=== PATIENT | female | born 1945 | race Caucasian/White ===

== ENCOUNTER 2023-09-16 18:38 | Emergency (ER) | payer MEDICARE, SELFPAY ==
[2023-09-16 18:44] VITALS: BP 156/81; PULSE 96; RESP 18; TEMP 36.5; O2SAT 96; BMI 33.7
--- NOTE | 2023-09-16 18:50 | ED.NURSE ---
Spoke with Dr. Prado about patient's fall/injuries. Agreed she should have expedited head CT r/t Coumadin use. Shoulder xray also ordered. Radiology aware and coming to get patient.
--- NOTE | 2023-09-16 18:52 | CRLHL7_ITS ---
For Patients: As a result of the Cures Act, medical imaging exams and procedure reports are released immediately into your electronic medical record. You may view this report before your referring provider. If you have questions, please contact your health care provider. INDICATION: Fall, shoulder pain. TECHNIQUE: Left shoulder 3 views. COMPARISON: None. FINDINGS: There is an acute comminuted displaced fracture of the humeral head and neck. No dislocation. Minimal degenerative changes of the acromioclavicular joint. The visualized left lung is clear. Soft tissues are unremarkable. IMPRESSION: Acute comminuted displaced fracture of the humeral head and neck. Dictated by Beatrice Nguyen MD @ 09/16/2023 8:19:22 PM (Electronically Signed)
--- NOTE | 2023-09-16 18:52 | CRLHL7_ITS ---
For Patients: As a result of the Cures Act, medical imaging exams and procedure reports are released immediately into your electronic medical record. You may view this report before your referring provider. If you have questions, please contact your health care provider. INDICATION: Trauma. TECHNIQUE: Noncontrast axial images. Sagittal and coronal reconstructions. COMPARISON: None. FINDINGS: There is no abnormal intracranial mass effect or midline shift. No acute intracranial hemorrhage. No areas of abnormal attenuation are seen within the brain. CSF spaces are age-appropriate. No skull fracture. The paranasal sinuses and mastoids are clear. IMPRESSION: No CT evidence of an acute intracranial abnormality. Dictated by Marco Fairchild MD @ 09/16/2023 8:29:22 PM Please note that all CT scans at this facility use dose modulation, iterative reconstruction, and/or weight-based dosing when appropriate to reduce radiation dose to as low as reasonably achievable. Dictated by: Marco Fairchild MD @ 09/16/2023 20:29:34 (Electronically Signed)
--- NOTE | 2023-09-16 18:59 | CRLHL7_ITS ---
For Patients: As a result of the Century Cures Act, medical imaging exams and procedure reports are released immediately into your electronic medical record. You may view this report before your referring provider. If you have questions, please contact your health care provider. INDICATION: Trauma. TECHNIQUE: Noncontrast axial images. Sagittal and coronal reconstructions. COMPARISON: Head CT from earlier today. IMPRESSION: 1. No acute facial bone fracture. 2. Temporomandibular joints are normally aligned. 3. Intraorbital contents are grossly unremarkable. 4. Paranasal sinuses are clear. Dictated by Marco Fairchild MD @ 09/16/2023 8:33:31 PM Please note that all CT scans at this facility use dose modulation, iterative reconstruction, and/or weight-based dosing when appropriate to reduce radiation dose to as low as reasonably achievable. Dictated by: Marco Fairchild MD @ 09/16/2023 20:33:39 (Electronically Signed)
--- NOTE | 2023-09-16 18:59 | CRLHL7_ITS ---
For Patients: As a result of the Century Cures Act, medical imaging exams and procedure reports are released immediately into your electronic medical record. You may view this report before your referring provider. If you have questions, please contact your health care provider. INDICATION: Trauma. TECHNIQUE: Noncontrast axial images. Sagittal and coronal reconstructions. COMPARISON: None. FINDINGS: There is no abnormal prevertebral soft tissue swelling. Slight reversal of the normal lordotic cervical spine curvature centered at C4. No vertebral body malalignment or facet joint subluxation or dislocation. No cervical spine fracture. Multilevel disc degeneration, most significant (moderate to severe) at C5-6 and C6-7. Mild multilevel facet arthrosis. No significant central spinal stenosis. Mild bilateral neural foraminal narrowing at C5-6. IMPRESSION: 1. No cervical spine fracture or malalignment. 2. Cervical spondylosis as noted above. Please note that all CT scans at this facility use dose modulation, iterative reconstruction, and/or weight-based dosing when appropriate to reduce radiation dose to as low as reasonably achievable. Dictated by Marco Fairchild MD @ 09/16/2023 9:11:07 PM (Electronically Signed)
--- OUTSIDE RECORDS SUMMARY | 2023-09-16 19:48 | XMS_ITS | Continuity of Care Document ---
Author Name Unknown Organization [facility] Address [address] [address] [place] [address] Phone Care Team Providers Care Scarrer Name Role Phone Shaquille Sotelo MD Unavailable Unavailable Allergies, Adverse Reactions, Alerts Substance Reaction Status Criticality No Known Allergies Active No Inform ation Medications Medication Instructions Dosage Effective Dates (start - stop) Status Comments atorvastatin 10 mg tablet take 1 tablet by oral route every day 10 MG - Active omeprazole 40 mg capsule,delayed release take 1 capsule by oral route every day before a meal 40 MG - Active warfarin 5 mg tablet take 1 tablet by or al route every day 5 MG - Active Procedures Procedure Date Offic/outpt E&m [facility] [place] Advance Directives Directive Yes / No Effective Date File Name No Information Encounters Encounter Description Practice Location Reason(s) For Visit Diagnoses Date Provider Providers Copied on Encounter [facility], [address] [address], [place], [place], [id number], [place] tel:[phone] [facility] No Information 0 Ashleigh Corbin. [address] [place] [address], [address], [id number], [place]. tel:[phone] [facility], [address] [address], [place], [place], [id number], [place] tel:[phone] [facility] Colon adenoma 0 0 To [place]. [address] [facility] [address], [place], [id number], [place]. tel:[phone] Offic/outpt E&m [place], [address] [address], [place], [id number], [place] tel:[phone] [facility] GI Symptoms or Concerns (chief complaint) Hx of adenomatous colonic polyps 0 To [place]. [address] [place] [address], [id number], [place]. tel:[phone] Referring Provider: Referral Self, USE FOR SELF REFERRALS. [facility], [address] [address], [place], [id number], [place] tel:[phone] [facility] No Information 0 Mariluz Pan. [address] [place] [address], [id number], [place]. tel:[phone] Family History Family Member Type Diagnosis Age At Onset Sister Problem (finding) Pulmonary Embolism Immunizations Vaccine Date Status Comments zoster vaccine recombinant administered N ote: [facility] bi-directional interface ; Source: Other Registry Pneumovax 23 administered Note: [facility] bi-d irectional interface ; Source: Other Registry influenza, high-dose seasona l, quadrivalent, .7mL dose, preservative free administered Note: [facility] bi-direct ional interface ; Source: Other Registry Prevnar 13 administered Note: [facility] bi-d irectional interface ; Source: Other Registry zoster vaccine, live administered Note: M [facility] bi-directional interface ; Source: Other Registry Pneumovax 23 administered Note: [facility] bi-d irectional interface ; Source: Other Registry Payers Payer name Insurance type Covered democrat ID Authoriza tion(s) No Information Social History Type Description Quantity Date Captured Comments Sex Female Smoking Status No Information Chief Complaint And Reason For Visit No Information Reason For Referral Reason For Referral No Information Plan Of Treatment Date Type Action Status Referral Ordered: Colonoscopy With ESD Appointment date/timeframe: 09/18/2020 ordered Referral Ordered: Colonoscopy Appointment date/timeframe: -today ordered History Of Present Illness Encounter Date Complaint History Of Prese nt Illness GI Symptoms or Concerns Nicole mckeon is a pleasant 74-year-old woman with a significant history of advanced adenomatous polyps of her colon for which she presents today as well as medical history including 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 She presents today specifically because she has had several colonoscopies with adenomatous polyps removed and her most recent one in August 2019, there was also a large polyp on the IC valve that was biopsied confirming tubular adenoma, but was not removed and she requires further intervention for removal of this.Her colonoscopy in August 2019 was conducted in [facility], but she has since moved to [place] to live with her daughter. The 2019 colonoscopy was significant for 2 advanced adenomatous polyps by size that were completely removed and 2 smaller tubular adenomas that were removed. Furthermore, she had what appea Functional Status Date Functional Assessmen t No Information Instructions Date Instruction Additional Infor mation No Information Assessments Type Assessment Date No Information Patient Care Teams Name Effective Dates (start - stop) Status Members No Information
--- OUTSIDE RECORDS SUMMARY | 2023-09-16 19:48 | XMS_ITS | Continuity of Care Document ---
Author Name Unknown Organization [facility] Address [address] [address] [place] [address] Phone Care Team Providers Care Masseur/Masseuse Name Role Phone Shaquille Sotelo MD Unavailable [...] Active Procedures Procedure Date Offic/outpt E&m [facility] [place] Advance Directives Directive Yes / No Effective Date File Name No Information Encounters Encounter Description Practice Location Reason(s) For Visit Diagnoses Date Provider Providers Copied on Encounter [facility], [address] [address], [place], [place], [id number], [place] tel:[phone] [facility] No Information 0 Ashleigh Corbin. [address] [place] [address], [address], [id number], [place]. tel:[phone] [facility], [address] [address], [place], [place], [id number], [place] tel:[phone] [facility] Colon adenoma 0 0 To [place]. [address] [facility] [address], [place], [id number], [place]. tel:[phone] Offic/outpt E&m [place] [facility], [address] [address], [place], [id number], [place] tel:[phone] [facility] GI Symptoms or Concerns (chief complaint) Hx of adenomatous colonic polyps 0 To [place]. [address] [place] [address], [id number], [place]. tel:[phone] Referring Provider: Referral Self, USE FOR SELF REFERRALS. [facility], [address] [address], [place], [id number], [place] tel:[phone] [facility] No Information 0 Mariluz Pan. [address] [place] [address], [id number], [place]. tel:[phone] Family History Family Member Type Diagnosis Age [...] Registry Payers Payer name Insurance type Covered alliance party ID Authoriza tion(s) No Information Social History [...] colonoscopy in August 2019 was conducted in [facility], but she has since moved to [place] to live with her daughter. The 2019 [...]
[2023-09-16] MEDS: ONDANSETRON ODT 4 MG TAB PO (19:52)
[2023-09-16] MEDS: OXYCODONE 5 MG TABLET PO (19:52)
--- NOTE | 2023-09-16 20:14 | ED_ITS ---
HPI - Fall General Date Seen: 09/16/23 Chief Complaint: Fall/Minor Trauma Stated Complaint: fell on L arm Time Seen by Provider: 09/16/23 18:59 Source: patient Mode of arrival: ambulatory Limitations: no limitations History of Present Illness HPI Narrative: Patient is 77-year-old female with no pertinent medical problems other than being on warfarin for previous DVTs and PE presenting to the emergency department after a fall. She states she tripped on a step while on a walk causing her fall in her left shoulder and hitting her face. Denies any neck pain or headache at this time. States she will quickly was able to sit up and completely shortly after her fall her daughter can walk by and saw her on the ground. Her daughter states patient has been acting normally since then. Ladi childress is complaining about left shoulder pain. Denies lightheadedness, dizziness, numbness, weakness, fevers, chills, chest pain, shortness of breath. No other concerns at this time Related Data Home Medications Medication Instructions Recorded Confirmed atorvastatin 10 mg tablet 10 mg PO QHS 09/16/23 09/16/23 omeprazole 40 mg capsule,delayed 40 mg PO DAILY 09/16/23 09/16/23 release warfarin 2.5 mg tablet 2.5 - 5 mg PO DAILY 09/16/23 09/16/23 Allergies Allergy/AdvReac Type Severity Reaction Status Date / Time No Known Drug Allergies Allergy Verified 09/16/23 18:44 Review of Systems Status of ROS: Reports: 10 or more systems reviewed and unremarkable except as noted in History and below [facility] Social History Smoking Status: Never smoker Do you use any of these nicotine containing products: None Second hand tobacco smoke exposure: No How often do you have a drink containing alcohol: never AUDIT-C Alcohol total score: 0 Non-prescribed substance use: denies use service: No Exam Narrative: Exam Narrative: Const: Well-nourished, Well-developed, in mild distress Eyes: PERRL, no conjunctival injection, and symmetrical lids HENT: Multiple small abrasions to face. Moist mucous membranes. Neck: Symmetric, trachea midline, No thyromegaly. CVS: RRR, No murmurs or gallops. Peripheral pulses 2+ and equal in all extremities RESP: Unlabored respiratory effort. Clear to auscultation bilaterally. GI: Nontender/Nondistended, No rebound or guarding. MSK: Tenderness noted to left shoulder, no tenderness noted anywhere else. Skin: Warm, Dry. No rashes or lesions. Neuro: Normal Muscle tone, No focal neurological deficits. Psych: Awake, Alert, & Oriented x3. Appropriate mood and affect. Const: Vital Signs, click to edit/add: Vital Signs - 24 hr 09/16/23 18:44 Temperature 97.7 F Pulse Rate [Pulse Oximeter] 96 Respiratory Rate 18 Blood Pressure [[facility] Upper Arm] 156/81 H Pulse Oximetry 96 Oxygen Delivery Me thod Room Air Course Vital Signs Vital signs: Initial Vital Signs Temperature 97.7 F 09/16/23 18:44 Temperature Source Temporal Artery Scan 09/16/23 18:44 Pulse Rate 96 09/16/23 18:44 Respiratory Rate 18 09/16/23 18:44 Blood Pressure 156/81 H 09/16/23 18:44 Blood Pressure Mean 106 H 09/16/23 18:44 Blood Pressure Position Sitting 09/16/23 18:44 Pulse Oximetry 96 09/16/23 18:44 Oxygen Delivery Method Room Air 09/16/23 18:44 Vital Signs Temperature 97.7 F 09/16/23 18:44 Pulse Rate 96 09/16/23 18:44 Respiratory Rate 18 09/16/23 18:44 Blood Pressure 156/81 H 09/16/23 18:44 Pulse Oximetry 96 09/16/23 18:44 Oxygen Delivery Method Room Air 09/16/23 18:44 Temperature 97.7 F 09/16/23 18:44 Pulse Rate 96 09/16/23 18:44 Respiratory Rate 18 09/16/23 18:44 Blood Pressure 156/81 H 09/16/23 18:44 Pulse Oximetry 96 09/16/23 18:44 Oxygen Delivery Method Room Air 09/16/23 18:44 Medications Administered Medications: Discontinued Medications Generic Name Dose Route Start Last Admin Trade Name Freq PRN Reason Stop Dose Admin Ondansetron HCl 4 mg 09/16/23 19:45 09/16/23 19:52 Ondansetron Odt 4 Mg Tab PO 09/16/23 19:46 4 mg ONCE ONE Administration Oxycodone HCl 5 mg 09/16/23 19:45 09/16/23 19:52 Oxycodone 5 Mg Tablet PO 09/16/23 19:46 5 mg ONCE ONE Administration MDM - Fall MDM Narrative Medical decision making narrative: Patient is a 77-year-old female presenting after a ground level mechanical fall. She did hit her face it head along with her left shoulder. We will order a facial bones, head, cervical spine CTs x-rays of the left shoulder. She is given oxycodone for pain and Zofran for any potential nausea. We did check an INR since she is on warfarin. X-rays of the left shoulder shows a proximal humerus fracture. She was placed in a shoulder immobilizer. CTs all returned showing no concerning acute abnormalities. She is feeling well at this time. She will be discharged home with oxycodone and Zofran prescribed through [facility]. She is not having any current nausea but was given the prescription as a precaution in case the narcotics cause nausea. Lab Data Labs: Lab Results 09/16/23 Range/Units 20:29 INR 1.76 H (0.91-1.10) Imaging Data Left shoulder x-ray: Radiologist's impression: Acute comminuted displaced fracture of the humeral head and neck. Dictated by Beatrice Nguyen MD @ 09/16/2023 8:19:[address]: Radiologist's impression: 1. No acute facial bone fracture. 2. Temporomandibular joints are normally aligned. 3. Intraorbital contents are grossly unremarkable. 4. Paranasal sinuses are clear. Dictated by Marco Fairchild MD @ 09/16/2023 8:33:31 PM Please note that all CT scans at this facility use dose modulation, iterative reconstruction, and/or weight-based dosing when appropriate to reduce radiation dose to as low as reasonably achievable. Dictated by: Marco Fairchild MD @ 09/16/2023 20:33:[address]: Radiologist's impression: No CT evidence of an acute intracranial abnormality. Dictated by Marco Fairchild MD @ 09/16/2023 8:29:22 PM Please note that all CT scans at this facility use dose modulation, iterative reconstruction, and/or weight-based dosing when appropriate to reduce radiation dose to as low as reasonably achievable. Dictated by: Marco Fairchild MD @ 09/16/2023 20:29:[address]: Radiologist's impression: 1. No cervical spine fracture or malalignment. 2. Cervical spondylosis as noted above. Please note that all CT scans at this facility use dose modulation, iterative reconstruction, and/or weight-based dosing when appropriate to reduce radiation dose to as low as reasonably achievable. Dictated by Marco Fairchild MD @ 09/16/2023 9:11:07 PM Discharge Plan Discharge Clinical Impression: Fracture of proximal end of left humerus Qualifiers: Encounter type: initial encounter Fracture type: closed Fracture morphology: other fracture Fracture alignment: displaced Qualified Code(s): S42.292A - Other displaced fracture of upper end of left humerus, initial encounter for closed fracture Patient Disposition: Home, Self-Care Condition: Improved Instructions: Arm Fracture in Adults (DC) Additional Instructions: Follow-up with an orthopedic provider as soon as you can. Use Tylenol ibuprofen for pain and that is not helping use the oxycodone. Of note the oxycodone can increase your fall risk so make sure your care 40 take it. If needed you can take half doses. Wear the shoulder immobilizer until cleared by Orthopedics but you can adjusted for comfort Prescriptions: No Action atorvastatin 10 mg tablet 10 mg PO QHS omeprazole 40 mg capsule,delayed release(DR/EC) 40 mg PO DAILY warfarin 2.5 mg tablet 2.5 - 5 mg PO DAILY Rx Instructions: Takes 5mg //, 2.5mg /Th/Sat/Sun Follow Up/Referrals: Provider,Not a Local [Primary Care Provider] - Stand Alone Forms: [employer] Info Instructions
[2023-09-16 21:07] LABS: INR 1.76 (0.91-1.10); Prothrombin Time 21.8 Seconds
== END 2023-09-16 21:30 | disposition home or self-care (01) ==
PROVIDERS: Emergency Provider Student in an Organized Health Care Education/Training Program
DX: S42.202A Unspecified fracture of upper end of left humerus, initial encounter for closed fracture (principal); W01.0XXA Fall on same level from slipping, tripping and stumbling without subsequent striking against object, initial encounter; S00.81XA Abrasion of other part of head, initial encounter
CPT/HCPCS: 36415; 70450; 70486; 72125; 73030; 85610; 99283; 99284; A9270

== ENCOUNTER 2024-01-07 10:45 | Outpatient (RCR) | payer OTHER, SELFPAY ==
--- NOTE | 2023-10-06 09:34 | PT.OPEX ---
PT [place] Outpatient Eval initial eval PT [facility] Outpatient Eval Start: 10/06/23 07:37 Freq: Status: Active Protocol: Document 10/06/23 07:38 JUNAID (Rec: 10/06/23 09:31 JUNAID [id number]) E-signed By Tai Salinas DPT Physical Therapy Outpatient Evaluation Insurance Information Insurance Name Medicaid,[facility] Medical Diagnosis proximal fx of left humerus - mild displacement Treating Diagnosis left shoulder pain muscle weakness Referring MD Subjective Subjective Nicole comes into dealing with a L humerus fx that is mildly displaced, it was decided to proceeded with non-surgical route, this occurred 3 weeks ago (09/16/23) after a fall. Most the time she is not dealing with a lot of pain. Has been sleeping in the sling and in a recliner with minimal issue. Dressing and showering is going well overall is getting help from her daughter. She lives with her daughter so has help when needed. Her big goal is to return to driving and regular use of the arm Current Work Status Retired Precautions Treatment Precautions/Contraindications PROM x 5 weeks Rt RCR ~ 2004 Objective Other/Pertinent Objective SHOULDER AROM R, PROM L Flexion: [id number] L78 degrees before guarding Abduction: [id number] L 90 degrees Internal Rotation: R T12 L 53 degrees with shoulder in 15- 20 degrees abd External Rotation: R58 degrees L 23 degrees before pain NECK/SHOULDER MMT: deferred on fx shoulder, WNL on R JOINT MOBILITY/PALPATION increased guarding with overhead flexion increased pain with ER increased upper arm swelling Functional Test Performed & Score SPADI (10/06/23): 87.9% Assessment Assessment/Impression Pt is a 78 yr female who presents with concerns of L shoulder pain. Signs and symptoms likely indicating / consistent with Humeral fx. Patient also has notable objective findings including limited ROM, impaired shoulder stability , decreased strength also likely contributing to the problem. Patient is a good candidate for skilled therapy to target deficits described above. Skilled PT intervention is necessary for use of therapeutic exercise manual therapy, neuromuscular re- education, and therapeutic activity. Functional impairments include difficulty with: dressing lifting, reaching, driving. See appropriate sections of PT eval for complete list of goals and POC. D/C plan and criteria is for pt to achieve the goals as listed below or until max rehab potential is met. Pt was agreeable with plan of care and goals established. Plan of Care Rehabilitation Potential Good Physical Therapy Goals GOALS Patient will report/ demonstrate ability to drive 45-60 minutes for community transportation within 14-16 weeks. 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 Pt will be independent with HEP within 14-16 weeks to allow for independence and continued improvement past formal therapy Coordination/Communication With Referral Source Treatment Plan/Direct Interventions Joint Mobilization,Manual Therapy,Neuromuscular Re-ed, Self-Care/Home Management, Therapeutic Activities, Therapeutic Exercises Frequency/Duration 1-2 visits a week for 10-16 weeks Patient Will Be Discharged From Therapy Completion of LTG(s), Independent w/HEP, Independently Progressing Evaluation Billing Untimed Code Treatment Minutes 20 Complexity Low Certification Information Physician Comment/Change : Physician NPI Number #
--- NOTE | 2023-12-27 14:41 | PT.OPDNX ---
PT [facility] Daily Note [facility] Daily Note Start: 10/06/23 07:37 Freq: Status: Active Protocol: Document 12/27/23 07:53 CASSI (Rec: 12/27/23 14:41 CASSI [id number]) E-signed By Lela Rosenbaum DPT PT [facility] Daily Progress Note Visit Information Note Type Daily Note,Recert/Progress Note Visit Number [phone] Insurance Authorized Visits - Physician Authorized Visits - Insurance Information Recert Due Date 03/26/24 Insurance Name Medicare B,[employer] Medical Diagnosis proximal fx of left humerus - mild displacement Treating Diagnosis left shoulder pain, impaired L shoulder ROM, muscle weakness , impaired functional mobility /use L shoulder/UE currently restricted in L UE sling Referring MD Dr. Alessandro Alejandro Subjective Subjective Patient reports doing well. She is getting back to her normal daily activities, using L shoulder/UE regularly. HEP is going fine. Admits she didn't get the exercises in as much this last week. But overall feels L shoulder is doing well. Not needing pain meds or icing lately. Feeling a little tight in her UBN, trying to stretch some. Precautions Treatment Precautions/Contraindications Per MD note progress with AA/ AROM at this time. Light resistance and strengthening can start in 5-6 weeks (Dec 07 ) Rt RCR ~ 2004 Home Exercise Home Exercise Comments [id number] - standing table walk away flex, codmans, elbow PROM, flex table slides using R UE, shoulder rolls table slide flex, circles, alphabet supine 0-90 flex, circles CW/ CCW, scap protraction, CO reach with triceps ext anival flex, scap wall slide flex, circles, alphabet, snow angels wand ext, IR light TB shoulder ext and rows HO issued for HEP Objective Patient Instructed in Risks/Benefits Yes Therapeutic Exercise Therapeutic Exercise Minutes (minutes) 40 Therapeutic Exercise: To Restore review of HEP Functional Status hands together flexion x 10 with 1# wt Nustep x 8 min, L6 instructed in UT, levator stretches wall slide snow angels x 10 anival flex/scap lat pull down 4 plates 2 x 20 PNF D1/D2 flex/ext patterns R/ L - 1 plate 2 x 10 each. Performed bilaterally. shoulder ext - 2 plates x 20 rows 2 plates x 20 UBE x 4 min, fwd/back, low resistance Treatment Minutes Timed Code Treatment Minutes 40 Total Treatment Time 40 Billing Units Therapeutic Exercise Units 3 Assessment/Impression Assessment/Impression Patient is s/p fall with proximal L humerus fx on , nonsurgical. She continues to do well with her recovery. HEP is going well. Patient continues to improve with AROM as her strength improves. She is able to demonstrate functional AROM L shoulder for flex, scap, ER. IR remains tight, limited but is improving. Reviewed wand stretching for ext, IR, side/ side behind LB. Patient is doing well with progression of PT exercises and with her HEP . Some ongoing weakness noted with reaching up/out and patient fatigues with exercises and by end of PT session. She continues to increase the use of her L shoulder/UE with daily activities. Getting to the pool 2-3x/week and that is a good workout as well. Continued with focus on gym program for L shoulder ROM, strengthening, stabilization. Progressing with wts, reps, exercises as able. Ongoing L shoulder weakness/fatigue noted with exercises but tolerating progression of exercises well. Patient needing to perform PNF patterns with bilateral UEs due to weakness. She will continue with her HEP. Plan to continue with PT once a week for additional strengthening, improved endurance with daily activities. Progress/recert note will be sent to MD for signature. Patient will recheck in PT next week. She is making progress toward her PT goals. Continue with PT POC. Plan of Care Physical Therapy Goals GOALS Patient will report/ demonstrate ability to drive 45-60 minutes for community transportation within 14-16 weeks. 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 Pt will be independent with HEP within 14-16 weeks to allow for independence and continued improvement past formal therapy Daily Plan of Care Continue per POC Recertification Information Recertification Start Date 12/27/23 Recertification Due Date 03/26/24 Reasons to Continue Skilled Therapy see above note - patient would benefit from additional L shoulder/UE strengthening and improved endurance for functional use of L shoulder/ UE with daily activities. Rehabilitation Potential good Provider Signature Shows Agreement With POC & Medical Necessity Physician Comment/Change Comment or Changes Physician NPI Number #
== END 2024-03-08 17:36 | disposition home or self-care (01) ==
PROVIDERS: Visit Provider Orthopaedic Surgery
DX: S42.202A Unspecified fracture of upper end of left humerus, initial encounter for closed fracture (principal); Z51.89 Encounter for other specified aftercare
CPT/HCPCS: 97110; 97161